=== PATIENT | male | born 1955 | race Caucasian/White ===

== ENCOUNTER → 2018-01-03 14:56 | Outpatient (CLI) | payer OTHER, SELFPAY ==
--- NOTE | 2018-01-04 16:10 | DIET.PN ---
Addendum entered by Lydia Estrada 01/05/18 13:58: To clarify: DOS was 03 January 2018; charting not completed until 04 January 2018. Original Note: Met for initial consultation for education on diet for kidney stones Pt very knowledgeable; has done a lot of research; dealt w/recurring kidney stones for several years. Has several other issues as well, but wanted to tackle one at a time. These include DM, which he says isn't confirmed whether it's type I or II, as MDs trying to figure out the pancreas issue DX: recurr kidney stones HX: DM, pancreatitis (ideopathic) ASSESSMENT: Knowledgeable pt. Does many thing to help avoid kidney stones, including cutting down on Na intake, decreased protein/meats (purine/uric acid production) and tries to drink enough fluids, though may not always get enough. Has lab test pending in which he has to collect urine for 24 hours - suggested he measure fluid intake and volume of urine produced. Is taking an herbal supplement to help decrease kidney stone formation - includes dandelion root. INTERVENTION: Provided education on diet to avoid kidney stones: decreased protein, specifically meat sources vs dairy and vegetable protein to help decrease uric acid production; increase fluid w/goal of producing 2 liters urine daily, low sodium, moderate calcium intake w/goal of consuming approx 800 IU daily. Suggested to add Vit D supplement to help calcium be absorbed; spread high calcium foods through the day for better utilization and take protonix at times not eating high Ca+ foods due to interference w/absorption. GOAL: F/U 2 weeks. Pt hopes to have more lab work available to review. Will focus on other areas: pancreatitis and diabetes Bring label for herbal supplement for review
== END ==
PROVIDERS: PCP Family Medicine; Visit Provider Urology
DX: N20.0 Calculus of kidney (principal)
CPT/HCPCS: 97802

== ENCOUNTER → 2018-01-19 13:56 | Outpatient (CLI) | payer OTHER, SELFPAY ==
--- NOTE | 2018-01-19 15:34 | DIET.PN ---
Met for 2nd f/u Did not receive pt's lab work as intended, though he requested to have this done. Our plan was to check labs for any changes in recommendations that should be made for avoidance of kidney stones. Joon does report his A1C is down and he is pleased with this. Continues to eat <50g CHO/meal. Has to change protonix as PCP informed him this med may increased risk of alzheimer's. Started a different med but can't recall name. Continues to have some pain in lower back that feels like kidney stone forming. Started vit D supplement as rec, continues to push water intake. DX: recurrent kidney stones HX: idiopathic pancreatitis, DM ASSESSMENT: Appears to be controlling DM well AEB in A1C. Unfortunately, we did not have lab work to evaluate INTERVENTION: Provided info on herbal supplement he was taking- showing poor evidence of effectiveness in treating kidney stones - DCd this. GOAL/PLAN; Pt will work on getting lab work to me. I will send feedback and if there is anything notable, we may schedule another appt. Will get name of new med to me for review.
== END ==
PROVIDERS: PCP Family Medicine; Visit Provider Urology
DX: E11.9 Type 2 diabetes mellitus without complications (principal); K85.90 Acute pancreatitis without necrosis or infection, unspecified
CPT/HCPCS: 97803

== ENCOUNTER 2018-01-25 20:12 | Emergency (ER) | payer OTHER, SELFPAY ==
[2018-01-25 20:15] VITALS: BP 141/81; PULSE 87; RESP 14; TEMP 36.7; O2SAT 99; BMI 24.4
[2018-01-25 20:49] LABS: Bacteria Urine None Seen
[2018-01-25 20:53] LABS: Add Manual Diff / Slide Review NO; Basophils Percent Auto 0.2 % (0-2); Eosinophils Percent Auto 3.6 % (2-4); Hematocrit 38.3 % (41-53); Hemoglobin 12.9 g/dL (13.5-17.5); Lymphocytes Percent Auto 22.4 % (25-40); Mean Corpuscular HGB Conc 33.7 % (30-36); Mean Corpuscular Hemoglobin 31.5 PG (26-34); Mean Corpuscular Volume 93.4 fL (80-100); Monocytes Percent Auto 6.6 % (3-14); Neutrophils Absolute Auto 6500 /uL (3000-5900); Neutrophils Percent Auto 67.2 % (50-75); Platelet Count 302 X10^3/uL (150-400); Red Cell Distribution Width 13.2 % (11.6-14.8); White Blood Cell Count 9.7 X10^3/uL (4.5-11.0)
[2018-01-25 20:55] LABS: Culture Indicated Urine Cult Not Indicated; RBC Urine 1-5/HPF (0-5/HPF); Squamous Epithelial Cell Urine 1-5 /HPF; WBC Urine 1-5/HPF (0-5/HPF)
[2018-01-25 21:01] LABS: Lactate (Lactic Acid) 1.5 mmol/L (0.7-2.1)
[2018-01-25 21:02] LABS: Alanine Aminotransferase 30 IU/L (21-72); Albumin 4.2 g/dL (3.5-5.0); Albumin Globulin Ratio 1.6 (1.0-2.8); Alkaline Phosphatase 68 U/L (38-126); Aspartate Aminotransferase 25 IU/L (17-59); BUN Creatinine Ratio 21.7 (6-22); Bilirubin Total 0.5 mg/dL (0.2-1.3); Blood Urea Nitrogen 26 mg/dL (9-20); Calcium 9.3 mg/dL (8.4-10.2); Carbon Dioxide 23 mmol/L (22-32); Chloride 105 mmol/L (98-107); Estimated Glomerular Filt Rate > 60.0 mL/min (>60); Globulin 2.6 g/dL (1.7-4.1); Glucose 151 mg/dL (80-110); HEMOLYSIS < 15 (0-50); Lipase 1110 U/L (23-300); Potassium 3.7 mmol/L (3.4-5.1); Sodium 139 mmol/L (137-145); Total Protein 6.8 g/dL (6.3-8.2)
[2018-01-25] MEDS: HYDROMORPHONE 0.5 MG INJ IV (21:12)
--- NOTE | 2018-01-25 21:26 | DI.CT.S_ITS ---
PROCEDURE: CT KIDNEY URETER BLADDER (KUB) INDICATIONS: right flank pain radiating to groin - stone? TECHNIQUE: Noncontrast 5 mm thick sections acquired from the diaphragms to the symphysis. 5 mm thick coronal and sagittal reformats were then performed. For radiation dose reduction, the following was used: automated exposure control, adjustment of mA and/or kV according to patient size. COMPARISON: [facility], CT, ABDOMEN/PELVIS WITH CONTRAST, 07/21/2011, 5:18. [facility], CT, ABDOMEN W&WO CONTRAST, 07/27/2012, 11:22. FINDINGS: Image quality: Excellent. Lung bases: Lung bases are clear. Heart size is normal. Urinary system: Moderate hydronephrosis and perinephric stranding related to a 6 mm calculus seen in the proximal right ureter on image 54 series 2. Additional sub-4 mm right renal calculi are seen, for example image 44 series 2. There also few 1 mm left renal calculi without evidence of urinary obstruction. The bladder is grossly unremarkable. No bladder calculi are seen Other solid organs: Liver is normal in size. Gallbladder negative surgically absent. Pancreas is normal in contours. Pancreatic duct is prominent although not well-visualized in the absence of IV contrast. Spleen is normal in size. No adrenal nodules. Peritoneum and bowel: Unenhanced bowel loops demonstrate normal wall thickness and caliber. No free fluid or air. Normal appendix. The rectum is decompressed otherwise unremarkable. Nodes and vessels: No retroperitoneal or mesenteric adenopathy by size criteria. Aorta and inferior vena cava are normal in caliber. Abdominal wall: No ventral hernias. Pelvis: No free pelvic fluid. No inguinal hernias or adenopathy. Bones: Possible 9 mm bone island seen in the right femoral head which is unchanged. No vertebral body compression fractures. Nonspecific 5 mm focus of sclerosis in the L3 vertebral body. IMPRESSION: Moderately obstructive proximal right ureteral calculus measuring 6 mm. Additional bilateral punctate nephrolithiasis. Dictated by: Juan David Galaviz M.D. on 01/25/2018 at 21:32 Approved by: Juan David Galaviz M.D. on 01/25/2018 at 21:39
--- NOTE | 2018-01-25 23:19 | ED.MALEGU ---
HPI - Male Genitourinary General Chief complaint: Urogenital-Male Stated complaint: STATES KIDNEY ISSUES Time Seen by Provider: 01/25/18 20:29 History of Present Illness HPI Narrative: HPI 62-year-old male with DM II, prior ureterolithiasis (requiring lithotripsy and stenting), cholecystectomy, and pancreatitis (reportedly idiopathic) presents for evaluation of right flank pain ring to the groin and poorly characterized epigastric discomfort that is been waxing and waning and progressing for several days. Patient denies dysuria, testicular pain, continues to take PO well, pass urine, flatus, stool baseline. No fevers or chills. No chest pain. M/S/F/SocHx notable for: please see HPI; remainder reviewed with patient and in chart. ROS: Negative constitutional, eye, cardiovascular, pulmonary, GI, , MSK, skin, neurologic, psychiatric, endocrine unless noted in the HPI. Exam Gen: Pleasant, non-toxic appearing, resting in mild discomfort. HEENT: NC, AT, PEERL, EOMI. Resp: Clear to auscultation bilaterally, normal work of breathing, no accessory muscle usage. Card: Regular rate and rhythm with no murmurs, rubs, or gallops, extremities warm and well perfused. GI: mild epigastric tenderness palpation, otherwise non-tender to palpation throughout all quadrants, no focal tenderness at McBurney's point, negative Holliday's sign, non-distended, no rebound or guarding. : No suprapubic tenderness to palpation. No CVA tenderness percussion bilaterally. MSK: No visible deformities, strength and tone without visually appreciable deficit. Skin: Normal color with no visible lesions. Neuro: AO x 3, no facial asymmetry, vision and hearing WNL. Psych: Mood and affect appropriate. Labs / Imaging: WBC 9.7, HB 12.9, sodium 139, potassium 3.7, lactic 1.5, total bilirubin 0.5, AST 25, ALT 30, ALP 68, lipase 1110. CT abdomen/pelvis: moderately obstructive proximal right ureteral calculus measuring 6 mm. Additional bilateral punctate nephrolithiasis. UA - no bacteria, negative nitrate, negative leukocyte esterase, 1-5 WBCs. MDM Previous chart, nursing note, labs, imaging, and vitals reviewed. A: 62-year-old male with DM II, prior ureterolithiasis (requiring lithotripsy and stenting), cholecystectomy, and pancreatitis (reportedly idiopathic) presents for evaluation of right flank pain ring to the groin and poorly characterized epigastric discomfort that is been waxing and waning and progressing for several days. DDx: pancreatitis, ureterolithiasis, UTI, pyelonephritis, constipation, diverticulitis, pseudoappendicitis, mesenteric adenitis, epiploic appendagitis. Evaluation: patient with a 6 mm right side ureteral calculus an elevated lipase consistent with pancreatitis. However, the patient's CT (albeit noncontrast) is without evidence of pancreatic inflammation in the patient's have persistently elevated lipase values, given the mildness of epigastric tenderness in the ongoing PO intake suspect mild pancreatitis. UA without evidence of infection. As patient continues to take PO well, has pain is well controlled with minimum analgesia, and there were no significant abnormalities on CT or CBC and is hemodynamically stable he is appropriate for outpatient management of his pancreatitis. With respect to his right ureteral stone, patient wishes to pursue conservative management and will follow up with his urologist in the morning. Patient was prescribed [place] and Zofran. Impression: ureterolithiasis, pancreatitis (please reference below for remainder of encounter information) Related Data Home Medications Medication Instructions Recorded Confirmed pantoprazole [Protonix] 40 mg PO BID #0 07/21/11 epinephrine 0.3 mg IM SEE INSTRUCTIONS #1 ea 01/03/13 metformin [Glucophage] 1,000 mg PO BID #0 04/02/17 ibuprofen 200 mg PO PRN PRN #0 11/05/17 Previous Rx's Medication Instructions Recorded oxycodone 10 mg PO Q4HP PRN #14 tab 11/05/17 tamsulosin [Flomax] 0.4 mg PO HS #7 cap 11/05/17 Allergies Allergy/AdvReac Type Severity Reaction Status Date / Time BEE STING Allergy Unknown Uncoded 01/25/18 20:15 Exam Initial Vital Signs Initial Vital Signs: Vital Signs Temperature 98.1 F 01/25/18 20:15 Pulse Rate 87 01/25/18 20:15 Respiratory Rate 14 01/25/18 20:15 Blood Pressure 141/81 H 01/25/18 20:15 Pulse Oximetry 99 01/25/18 20:15 Course Orders Ordered: ED Orders 01/25/18 20:30 Urine Microscopic Stat 01/25/18 20:40 Complete Blood Count AUTO DIFF Stat Comprehensive Metabolic Panel Stat Lactate (Lactic Acid) Stat Lipase Stat 01/25/18 21:26 CT kidney ureter bladder (KUB) Stat Hydromorphone HCl (Dilaudid) 0.5 mg IV PRN PRN PRN Reason: Pain, Mild (1-3) Last Admin: 01/25/18 21:12 Dose: 0.5 mg Vital Signs - 8 hr 01/25/18 20:15 Temperature 98.1 F Pulse Rate 87 Respiratory Rate 14 Blood Pressure 141/81 H Pulse Oximetry 99 MDM - Male Genitourinary Lab Data Result diagrams: 01/25/18 20:40 01/25/18 20:40 Lab Results 01/25/18 01/25/18 01/25/18 Range/Units 20:30 20:40 20:40 WBC 9.7 (4.5-11.0) X10^3/uL RBC 4.10 L (4.5-5.9) X10^6/uL Hgb 12.9 L (13.5-17.5) g/dL Hct 38.3 L (41-53) % MCV 93.4 (80-100) fL MCH 31.5 (26-34) PG MCHC 33.7 (30-36) % RDW 13.2 (11.6-14.8) % Plt Count 302 (150-400) X10^3/uL Neut % (Auto) 67.2 (50-75) % Lymph % (Auto) 22.4 L (25-40) % [place] % (Auto) 6.6 (3-14) % Eos % (Auto) 3.6 (2-4) % Baso % (Auto) 0.2 (0-2) % Neut # (Auto) 6500 H (1601-5592) /uL Sodium 139 (137-145) mmol/L Potassium 3.7 (3.4-5.1) mmol/L Chloride 105 (98-107) mmol/L Carbon Dioxide 23 (22-32) mmol/L BUN 26 H (9-20) mg/dL Creatinine 1.20 (0.66-1.25) mg/dL Estimated GFR > 60.0 (>60) mL/min BUN/Creatinine Ratio 21.7 (6-22) Glucose 151 H (80-110) mg/dL Lactate (0.7-2.1) mmol/L Calcium 9.3 (8.4-10.2) mg/dL Total Bilirubin 0.5 (0.2-1.3) mg/dL AST 25 (17-59) IU/L ALT 30 (21-72) IU/L Alkaline Phosphatase 68 (38-126) U/L Total Protein 6.8 (6.3-8.2) g/dL Albumin 4.2 (3.5-5.0) g/dL Globulin 2.6 (1.7-4.1) g/dL Albumin/Globulin Ratio 1.6 (1.0-2.8) Lipase 1110 H (23-300) U/L Urine RBC 1-5/hpf (0-5/HPF) Urine WBC 1-5/hpf (0-5/HPF) Ur Squamous Epith Cells 1-5 /hpf Urine Bacteria None seen (None) Ur Culture Indicated? Cult not indicated Micro UA Comment Not Reportable 01/25/18 Range/Units 20:40 WBC (4.5-11.0) X10^3/uL RBC (4.5-5.9) X10^6/uL Hgb (13.5-17.5) g/dL Hct (41-53) % MCV (80-100) fL MCH (26-34) PG MCHC (30-36) % RDW (11.6-14.8) % Plt Count (150-400) X10^3/uL Neut % (Auto) (50-75) % Lymph % (Auto) (25-40) % [place] % (Auto) (3-14) % Eos % (Auto) (2-4) % Baso % (Auto) (0-2) % Neut # (Auto) (0506-0090) /uL Sodium (137-145) mmol/L Potassium (3.4-5.1) mmol/L Chloride (98-107) mmol/L Carbon Dioxide (22-32) mmol/L BUN (9-20) mg/dL Creatinine (0.66-1.25) mg/dL Estimated GFR (>60) mL/min BUN/Creatinine Ratio (6-22) Glucose (80-110) mg/dL Lactate 1.5 (0.7-2.1) mmol/L Calcium (8.4-10.2) mg/dL Total Bilirubin (0.2-1.3) mg/dL AST (17-59) IU/L ALT (21-72) IU/L Alkaline Phosphatase (38-126) U/L Total Protein (6.3-8.2) g/dL Albumin (3.5-5.0) g/dL Globulin (1.7-4.1) g/dL Albumin/Globulin Ratio (1.0-2.8) Lipase (23-300) U/L Urine RBC (0-5/HPF) Urine WBC (0-5/HPF) Ur Squamous Epith Cells Urine Bacteria (None) Ur Culture Indicated? Micro UA Comment Discharge Plan Departure Prescriptions: No Action pantoprazole [Protonix] 40 MG tablet,delayed release (DR/EC) 40 mg PO BID Qty: 0 RF: 0 epinephrine 0.3 MG/0.3 ML auto-injector 0.3 mg IM SEE INSTRUCTIONS Qty: 1 RF: 0 metformin [Glucophage] 1,000 MG tablet 1,000 mg PO BID Qty: 0 RF: 0 ibuprofen 200 MG tablet 200 mg PO PRN PRNQty: 0 RF: 0 oxycodone 10 MG tablet 10 mg PO Q4HP PRNQty: 14 RF: 0 tamsulosin [Flomax] 0.4 MG capsule,extended release 24hr 0.4 mg PO HS Qty: 7 RF: 0
[2018-01-25 23:45] VITALS: BP 126/77; PULSE 75; RESP 18; TEMP 37.2; O2SAT 99
[2018-01-25] MEDS: ONDANSETRON 4 MG ODT PREPACK 1 BOTTLE MISC (23:45)
[2018-01-25] MEDS: HYDROCODONE/ACET 5/325 PREPACK 1 BOTTLE MISC (23:45)
== END 2018-01-25 23:46 | disposition home or self-care (01) ==
PROVIDERS: Emergency Provider Emergency Medicine; Family Provider Family Medicine; PCP Family Medicine
DX: N20.1 Calculus of ureter (principal); K85.90 Acute pancreatitis without necrosis or infection, unspecified
CPT/HCPCS: 36591; 74176; 80053; 81003; 81015; 83605; 83690; 85025; 99282; 99284; J1170

== ENCOUNTER → 2018-04-22 14:14 | Outpatient (CLI) | payer OTHER, SELFPAY ==
--- NOTE | 2018-04-22 | DI.US.S_ITS ---
PROCEDURE: US RETROPERITONEAL COMP INDICATIONS: RIGHT FLANK PAIN; HISTORY BILATERAL KIDNEY STONES TECHNIQUE: Real-time scanning was performed of the kidneys and bladder, with image documentation. COMPARISON: [facility], CT, CT KIDNEY URETER BLADDER (KUB), 01/25/2018, 21:12. FINDINGS: Kidneys: Kidneys are normal in size. Right kidney measures 13 cm long; left kidney measures 12.2 cm long. Right renal cortical thickness is 1.6 cm; left renal cortical thickness is 2 cm. Renal cortical echotexture is normal. No hydronephrosis or nephrolithiasis. No suspicious solid mass lesions. Bladder: Pre-void bladder volume is 66 mL. Post-void residual is 34 mL. Pre-void images demonstrate no intraluminal masses or stones. On pre-void images, neither of the ureteral jets are noted with color Doppler interrogation. (Of note, ureteral jets may not be detectable in up to 25% of cases due to insufficient differences in specific gravity between ureteral and bladder urine). Miscellaneous: No free pelvic fluid. IMPRESSION: No hydronephrosis is seen. No shadowing stones can be seen on this ultrasound. Mild postvoid residual (34 cc). Dictated by: Saqib Taylor M.D. on 04/22/2018 at 14:36 Approved by: Saqib Taylor M.D. on 04/22/2018 at 14:37
== END ==
PROVIDERS: PCP Family Medicine; Visit Provider Urology
DX: R10.9 Unspecified abdominal pain (principal); Z87.442 Personal history of urinary calculi
CPT/HCPCS: 76770

== ENCOUNTER → 2020-04-15 10:32 | Outpatient (CLI) | payer OTHER, MEDICARE, SELFPAY ==
--- NOTE | 2020-04-15 | DI.US.S_ITS ---
PROCEDURE: US RENAL COMPLETE INDICATIONS: CALCULUS OF KIDNEY TECHNIQUE: Real-time scanning was performed of the kidneys and bladder, with image documentation. COMPARISON: [facility], CT, CT ABDOMEN PELVIS WITH CONTRAST, 09/25/2018, 2:18. Outside Film, CT, CT ABDOMEN PELVIS WITHOUT CONTRAST, 02/21/2020, 7:03. FINDINGS: Kidneys: Kidneys are normal in size. Right kidney measures 11.8 cm long; left kidney measures 11.5 cm long. Right renal cortical thickness is 1.3 cm; left renal cortical thickness is 1.6 cm. Renal cortical echotexture is normal. No hydronephrosis. No suspicious solid mass lesions. Tiny bilateral nonobstructing renal stones are seen. At the inferior pole of the left kidney, there is a 1 cm cyst incidentally noted. At the inferior pole of the right kidney, there is a cluster of cysts that measures up to 1.7 cm, when measured together within the midportion of the kidney, including a complex cyst. Bladder: Pre-void bladder volume is 392 mL. Post-void residual is 13 mL. Pre-void images demonstrate no intraluminal masses or stones. The gallbladder wall appears thickened, measuring up to 5.3 mm. On pre-void images, neither of the ureteral jets are noted with color Doppler interrogation. (Of note, ureteral jets may not be detectable in up to 25% of cases due to insufficient differences in specific gravity between ureteral and bladder urine). Miscellaneous: No free pelvic fluid. IMPRESSION: Tiny nonobstructing bilateral renal stones are seen. No hydronephrosis is seen. Within the mid right kidney, there is a complex cyst seen. When clinically appropriate, please consider a dedicated renal mass protocol CT for further evaluation. Mild bladder wall thickening is seen. Mild postvoid residual, 13 cc. Dictated by: Saqib Taylor M.D. on 04/15/2020 at 13:49 Approved by: Saqib Taylor M.D. on 04/15/2020 at 13:52
== END ==
PROVIDERS: PCP Family Medicine; Referring Provider Urology; Visit Provider Urology
DX: N20.0 Calculus of kidney (principal); N28.1 Cyst of kidney, acquired
CPT/HCPCS: 76770

== ENCOUNTER → 2021-09-30 07:31 | Outpatient (CLI) | payer OTHER, MEDICARE, SELFPAY ==
--- NOTE | 2021-09-30 | DI.MRI.S_ITS ---
PROCEDURE: MR ABDOMEN WO/W CON INDICATIONS: Idiopathic acute pancreatitis without necrosis or TECHNIQUE: Coronal HASTE, axial 2D FLASH in- and [id number]; axial breath-hold T2 FSE with fat saturation from the hepatic dome to the iliac crests. Oblique coronal thin-slice and radial thick slab HASTE through the biliary system. Dynamic axial VIBE during administration of contrast. Post-contrast coronal VIBE or 2D FLASH with fat saturation from the hepatic dome to the iliac crests. Optional diffusion weighted imaging and ADC may be performed. COMPARISON: [facility], CT, CT ABDOMEN PELVIS WITH CONTRAST, 09/25/2018, 2:18. FINDINGS: Image quality: Excellent. Pancreas and biliary system: There is a trophic appearing pancreas without discrete pancreatic mass or area of abnormal enhancement. No peripancreatic inflammatory changes are seen. Chronic appearing pancreatic ductal dilatation is noted with pancreatic duct measures up to 7.5 mm in diameter in pancreatic body and 9 mm in diameter in uncinate process. Focal dilatation of pancreatic duct at the level of pancreatic head is seen and measures up to 2.1 cm in diameter. There is no intrahepatic biliary ductal dilatation. Common bile duct is normal in size and measures 6 mm in diameter. No intraluminal filling defect is identified in common bile duct. No definite filling defect is noted within pancreatic duct. No area of abnormal enhancement is seen Solid organs: Liver is normal in size and enhancement. Gallbladder is surgically absent. Spleen is normal in size and enhancement. No adrenal nodules. Kidneys are normal in size and enhancement, without hydronephrosis. Nodes and vessels: No retroperitoneal or mesenteric adenopathy by size criteria. Aorta and inferior vena cava are normal in size. Bowel and peritoneum: Unenhanced bowel loops are normal in caliber throughout. No free fluid. Lung bases: No basal pleural effusions. Heart size is normal. Bones and soft tissues: No ventral hernias. Bone marrow is normal in overall signal. IMPRESSION: 1. Atrophic appearing pancreas with diffusely dilated pancreatic duct as described above. Focal area of main pancreatic ductal dilatation and pancreatic head region measures up to 2.2 cm in diameter which may represent main duct IPMN in this area. No enhancing pancreatic mass is noted. No peripancreatic fat stranding or fluid. No gross soft tissue mass or filling defect is seen in pancreatic duct. Consider follow-up MRI in 6 months for evaluation of stability. 2. Prior cholecystectomy. No intrahepatic biliary ductal dilatation. No common bile duct dilatation. No choledocholithiasis. 3. Rest of the exam is unremarkable. No peritoneal free fluid. Dictated by: Ajay Brock M.D. on 09/30/2021 at 9:28 Approved by: Ajay Brock M.D. on 09/30/2021 at 9:55
== END ==
PROVIDERS: PCP Family Medicine; Referring Provider Internal Medicine Gastroenterology; Visit Provider Internal Medicine Gastroenterology
DX: K85.00 Idiopathic acute pancreatitis without necrosis or infection (principal); K86.89 Other specified diseases of pancreas; Z90.49 Acquired absence of other specified parts of digestive tract
CPT/HCPCS: 74183

== ENCOUNTER → 2021-10-03 10:23 | Outpatient (CLI) | payer OTHER, MEDICARE, SELFPAY ==
[2021-10-03 13:50] LABS: COVID19 -Nasal RAPID Negative (Negative)
== END ==
PROVIDERS: PCP Family Medicine; Visit Provider Nurse Practitioner Family
DX: Z20.822 Contact with and (suspected) exposure to COVID-19 (principal)
CPT/HCPCS: 87635

== ENCOUNTER 2021-10-03 22:16 | Emergency (ER) | payer OTHER, MEDICARE, SELFPAY ==
[2021-10-03 22:25] VITALS: BP 155/82; PULSE 77; RESP 16; TEMP 36.9; O2SAT 99; BMI 25.0
--- NOTE | 2021-10-03 22:34 | ED.ABDPAIN ---
HPI - Abdominal Pain General Chief Complaint: Abdominal Pain Stated Complaint: PANCREATITIS ATTACK Time Seen by Provider: 10/03/21 22:26 Source: patient and family Mode of arrival: Ambulatory History of Present Illness HPI narrative: 66-year-old male nonsmoker with history of pancreatitis and kidney stones presents with his in the chief complaint of increased epigastric pain with nausea over the course of the day. He states this feels quite similar to prior episodes of pancreatitis. He states he has increased pain with motion and improvement with rest. He has nausea but denies vomiting. He has had no fever or chills. He denies any alcohol. He denies any change in bowel habits, new medications. He states the pain is sharp, stabbing crampy and sits in his upper belly and occasionally radiates to his back. He is unsure what was going on when it started but it feels quite similar to prior episodes of his pancreatitis. He denies any change in medications or diet Related Data Home Medications Medication Instructions Recorded Confirmed pantoprazole 40 mg tablet,delayed 40 mg PO BID #0 07/21/11 10/03/21 release (Protonix) epinephrine 0.3 mg/0.3 mL 0.3 mg IM SEE INSTRUCTIONS #1 ea 01/03/13 injection, auto-injector metformin 1,000 mg tablet 1,000 mg PO BID #0 04/02/17 (Glucophage) ibuprofen 200 mg tablet 200 mg PO PRN PRN #0 11/05/17 atorvastatin 20 mg tablet mg 10/03/21 insulin glargine 100 unit/mL unit SUBCUT 10/03/21 subcutaneous solution (Lantus U-100 Insulin) oxycodone 10 mg tablet 10 mg PO Q4HP PRN 10/03/21 Previous Rx's Medication Instructions Recorded tamsulosin 0.4 mg capsule (Flomax) 0.4 mg PO HS #7 cap 11/05/17 hydrocodone 5 mg-acetaminophen 325 See Rx Instructions .ROUTE 01/25/18 mg tablet .COMPLEX PRN #20 tab hydrocodone 5 mg-acetaminophen 325 1 tab PO Q4-6H PRN #10 tab 10/04/21 mg tablet ondansetron 4 mg disintegrating 4 mg PO TID-QID PRN #10 tab 10/04/21 tablet Allergies Allergy/AdvReac Type Severity Reaction Status Date / Time BEE STING Allergy Unknown Uncoded 03/11/22 22:28 Review of Systems Review of Systems Narrative: GENERAL: Denies chills, fatigue, malaise, fever, sweats. HEENT: Denies sinus pain, ear pain, sore throat, difficulty swallowing, dizziness. RESPIRATORY: Denies dyspnea, cough, wheezing, hemoptysis, sputum. CARDIOVASCULAR: Denies chest pain, palpitations, orthopnea, edema, GASTROINTESTINAL: See HPI : Denies dysuria, frequency, incontinence, hematuria, urinary retention. MUSCULOSKELETAL: denies weakness, joint pain, or bony pain SKIN: Denies rash, skin lesions, or other NEUROLOGIC: Denies weakness, headache, numbness, change in speech, confusion, seizures, incoordination. PSYCHIATRIC: No concerning psychosocial issues. 12 point review of systems is negative except for those stated above Patient History Social History Smoking Status: Never smoker Smoking Status: Never smoker alcohol intake frequency: other Substance Use Type: does not use Exam Narrative Exam Narrative: GENERAL: [66] year old patient appears stated age. Well-developed patient, in mild distress. HEAD: Atraumatic. Normocephalic. EYES: Pupils equal round and reactive. Extraocular motions intact. No scleral icterus. No injection or drainage. ENT: Nose without bleeding, purulent drainage. Throat without erythema, tonsillar hypertrophy or exudate. Airway patent. NECK: Trachea midline. Non tender CARDIOVASCULAR: Regular rate and rhythm without murmurs, gallops, or rubs. RESPIRATORY: Clear to auscultation. Breath sounds equal bilaterally. No wheezes, rales, or rhonchi. GASTROINTESTINAL: Abdomen soft, tender in the epigastric, nondistended. EXTREMITIES: No edema or joint tenderness. BACK: Nontender without deformity or crepitance. No flank tenderness. NEURO: AOx3. SKIN: No rash or erythema of visible areas Initial Vital Signs Initial Vital Signs: Vital Signs Temperature 98.5 F 10/03/21 22:25 Pulse Rate 77 10/03/21 22:25 Respiratory Rate 16 10/03/21 22:25 Blood Pressure 155/82 H 10/03/21 22:25 Pulse Oximetry 99 10/03/21 22:25 Course Orders Ordered: ED Orders 10/03/21 22:38 Complete Blood Count AUTO DIFF Stat Comprehensive Metabolic Panel Stat Lipase Stat 10/04/21 00:00 XR acute abdomen series Stat Discontinued Medications Hydrocodone Bitart/Acetaminophen (Hydrocodone/Acet 5/325 Prepack) 1 bottle MISC SEEINSTR ONE Stop: 10/04/21 01:58 Last Admin: 10/04/21 02:13 Dose: 1 bottle Documented by: BJ Hydromorphone HCl (Hydromorphone 1 Mg Inj) 1 mg IV NOW ONE Stop: 10/03/21 22:39 Last Admin: 10/03/21 22:45 Dose: 1 mg Documented by: BJ Hydromorphone HCl (Hydromorphone 0.5 Mg Inj) 0.5 mg IV NOW ONE Stop: 10/04/21 00:01 Last Admin: 10/04/21 00:19 Dose: 0.5 mg Documented by: BJ Sodium Chloride (Normal Saline 0.9%) 1,000 mls @ 1,000 mls/hr IV BOLUS ONE Stop: 10/03/21 23:37 Last Infusion: 10/03/21 23:37 Dose: 0 mls/hr Documented by: Admin: 10/03/21 22:45 Dose: 1,000 mls/hr Documented by: BJ Sodium Chloride (Normal Saline 0.9%) 1,000 mls @ 1,000 mls/hr IV BOLUS ONE Stop: 10/04/21 00:59 Last Infusion: 10/04/21 02:21 Dose: 0 mls/hr Documented by: Admin: 10/04/21 00:19 Dose: 1,000 mls/hr Documented by: BJ Ondansetron HCl (Ondansetron 4 Mg/2 Ml Inj) 4 mg IV NOW ONE Stop: 10/03/21 22:39 Last Admin: 10/03/21 22:44 Dose: 4 mg Documented by: BJ Ondansetron HCl (Ondansetron 4 Mg Odt Prepack) 1 bottle MISC SEEINSTR ONE Stop: 10/04/21 01:58 Last Admin: 10/04/21 02:13 Dose: 1 bottle Documented by: BJ Vital Signs Vital signs: Vital Signs - 8 hr 10/03/21 23:14 10/03/21 23:16 10/03/21 23:30 Pulse Rate 72 80 70 Blood Pressure 134/76 138/76 Pulse Oximetry 98 97 97 10/04/21 00:00 10/04/21 02:18 10/04/21 02:19 Pulse Rate 70 75 75 Blood Pressure 166/79 H 131/61 Pulse Oximetry 98 99 98 MDM - Abdominal Pain Lab Data Result diagrams: 10/03/21 22:38 10/03/21 22:38 Labs: Lab Results 10/03/21 10/03/21 Range/Units 22:38 22:38 WBC 12.8 H (4.5-11.0) X10^3/uL RBC 4.46 L (4.5-5.9) X10^6/uL Hgb 13.8 (13.5-17.5) g/dL Hct 41.3 (41-53) % MCV 92.5 (80-100) fL MCH 30.9 (26-34) PG MCHC 33.4 (30-36) % RDW 12.9 (11.6-14.8) % Plt Count 266 (150-400) X10^3/uL Neut % (Auto) 77.3 H (50-75) % Lymph % (Auto) 14.6 L (25-40) % Mitchell % (Auto) 6.7 (3-14) % Eos % (Auto) 1.2 L (2-4) % Baso % (Auto) 0.2 (0-2) % Neut # (Auto) 9900 H (5723-6550) /uL Lymph # (Auto) 1900 (0954-2962) /uL Mitchell # (Auto) 900 (0-900) /uL Eos # (Auto) 200 (0-450) /uL Baso # (Auto) 0 (0-100) /uL Sodium 135 L (137-145) mmol/L Potassium 3.8 (3.4-5.1) mmol/L Chloride 106 (98-107) mmol/L Carbon Dioxide 24 (22-32) mmol/L BUN 15 (9-20) mg/dL Creatinine 0.82 (0.66-1.25) mg/dL Estimated GFR > 60.0 (>60) mL/min BUN/Creatinine Ratio 18.3 (6-22) Glucose 210 H (80-110) mg/dL Calcium 8.9 (8.4-10.2) mg/dL Total Bilirubin 0.9 (0.2-1.3) mg/dL AST 31 (17-59) IU/L ALT 32 (<50) IU/L Alkaline Phosphatase 96 (38-126) U/L Total Protein 7.5 (6.3-8.2) g/dL Albumin 4.7 (3.5-5.0) g/dL Globulin 2.8 (1.7-4.1) g/dL Albumin/Globulin Ratio 1.7 (1.0-2.8) Lipase 638 H (23-300) U/L Imaging Data Chest x-ray: Radiologist's Impression: Jose Antonio Bolanos??66??M??1955 ? Allergy/Adv: [BEE STING] Close Chest/Abdomen X-ray (Signed) Yuri Hebert - 10/04/21 Abdomen MRI (Signed) Ajay Brock - 09/30/21 Renal Ultrasound (Signed) Saqib Taylor - 04/15/20 Retroperitoneum Ultrasound (Signed) Saqib Taylor - 04/22/18 Abdomen/Pelvis CT (Signed) Juan David Galaviz - 01/25/18 Radiology - Historical 11/05/17 Radiology - Historical 11/05/17 Radiology - Historical 02/13/17 Radiology - Historical 02/28/16 Radiology - Historical 02/28/16 [place] [address] XRay Report Signed Patient: Jose Antonio Bolanos MR#: [id number] : 1955 Acct:[id number] Age/Sex: 66 / M Date of Service: 10/04/21 Loc: ED Accession Number: [id number] ?? Procedure: XR acute abdomen series Ordering Provider: Patrice Orona D.O. PROCEDURE:? XR ACUTE ABDOMEN SERIES ? INDICATIONS:? abdominal pain, nausea ? TECHNIQUE:? One view chest and two views of the abdomen were acquired.? ? COMPARISON:? None. ? FINDINGS:? ? Surgical changes and devices:? Surgical clips are seen in the right upper quadrant. ? Chest:? Lungs are clear.? Heart size is normal.? No pleural effusions.? No pneumoperitoneum.? ? Abdomen:? Air-filled loops of small bowel in the central abdomen are not significantly dilated.? Moderate stool is seen in the left colon.? No suspicious calcifications.? Visualized solid organ contours appear normal.? ? Bones:? No suspicious bony lesions.? ? IMPRESSION:? Nonspecific nonobstructive bowel gas pattern.? No pneumoperitoneum.? No acute cardiopulmonary abnormality. ? ? Dictated by: Yuri Hebert M.D. on 10/04/2021 at 0:19 ? ? Approved by: Yuri Hebert M.D. on 10/04/2021 at 0:21 ? MDM Narrative Medical decision making narrative: Patient with reassuring history and physical exam. His story is consistent with prior episodes of pancreatitis and lipase is elevated in the 600s. His exam fits this picture. He shows no signs of sepsis and pain is well controlled above-stated therapies. He is able to tolerate orals and is very appropriate for discharge. He does have an outpatient endoscopy scheduled for Wednesday with [facility] and is scheduled to do the typical prep on Wednesday evening. I encouraged him to reach out to that group earlier in the day to discuss his visit here and whether that may play a role and the plan on Wednesday. He and understand and agree with the diagnosis and plan. They have been given return precautions and a VAC questions answered to their apparent satisfaction Discharge Plan Departure Patient Disposition: Home Clinical Impression: Pancreatitis Instructions: DI for Pancreatitis Activity Restrictions/Additional Instructions: *You have been diagnosed with [acute mild pancreatitis. As we discussed your history and physical exam as well as labs and response to therapies is reassuring. There is no indication that hospitalization or a specific intervention is needed at this time. *What to do: *Please continue to take your regular medications as directed. [x ] New medication prescriptions sent to your pharmacy: [ [facility] in [place]] [ ] New medication written as a paper prescription [ ] No new medications given * please reach out to the GI team that will be performing your studies to discuss your visit today and how you should proceed with your appointment on Wednesday * please maintain a clear liquid diet for the next 24-48 hours *Return to Emergency Department if you should have any new, worsening or concerning symptoms, such as [fever greater than 101 F, shaking chills, worsening pain, persistent vomiting or other bothersome symptoms] Prescriptions: New hydrocodone-acetaminophen 5-325 mg tablet 1 tab PO Q4-6H PRN (Reason: pain) Qty: 10 0RF ondansetron 4 mg tablet,disintegrating 4 mg PO TID-QID PRN (Reason: nausea and vomiting) Qty: 10 0RF No Action pantoprazole [Protonix] 40 MG tablet,delayed release (DR/EC) 40 mg PO BID Qty: 0 0RF epinephrine 0.3 MG/0.3 ML auto-injector 0.3 mg IM SEE INSTRUCTIONS Qty: 1 0RF metformin [Glucophage] 1,000 MG tablet 1,000 mg PO BID Qty: 0 0RF ibuprofen 200 MG tablet 200 mg PO PRN PRNQty: 0 0RF tamsulosin [Flomax] 0.4 MG capsule,extended release 24hr 0.4 mg PO HS Qty: 7 0RF hydrocodone-acetaminophen 5-325 mg tablet See Rx Instructions .ROUTE .COMPLEX PRN (Reason: pain) Qty: 20 0RF Rx Instructions: 1-2 tab q6hr prn pain. atorvastatin 20 mg tablet 0RF Label Comments: take 1 tablet by mouth at bedtime Lantus U-100 Insulin 100 unit/mL solution SUBCUT 0RF Label Comments: inject 34 units subcutaneously every morning for diabetes oxycodone 10 MG tablet 10 mg PO Q4HP PRN (Reason: Pain (Scale Score 1-3)) 0RF Referrals: Anival Muse MD [Primary Care Provider] -
[2021-10-03] MEDS: ONDANSETRON 4 MG/2 ML INJ IV (22:44)
[2021-10-03] MEDS: SODIUM CHLORIDE 0.9% 1,000 ML 1000 ML IV (22:45)
[2021-10-03] MEDS: HYDROMORPHONE 1 MG INJ IV (22:45)
[2021-10-03 22:55] LABS: Add Manual Diff / Slide Review NO; Basophils Absolute Auto 0 /uL (0-100); Basophils Percent Auto 0.2 % (0-2); Eosinophils Absolute Auto 200 /uL (0-450); Eosinophils Percent Auto 1.2 % (2-4); Hematocrit 41.3 % (41-53); Hemoglobin 13.8 g/dL (13.5-17.5); Lymphocytes Absolute Auto 1900 /uL (1100-4500); Lymphocytes Percent Auto 14.6 % (25-40); Mean Corpuscular HGB Conc 33.4 % (30-36); Mean Corpuscular Hemoglobin 30.9 PG (26-34); Mean Corpuscular Volume 92.5 fL (80-100); Monocytes Absolute Auto 900 /uL (0-900); Monocytes Percent Auto 6.7 % (3-14); Neutrophils Absolute Auto 9900 /uL (1500-7000); Neutrophils Percent Auto 77.3 % (50-75); Platelet Count 266 X10^3/uL (150-400); Red Blood Cell Count 4.46 X10^6/uL (4.5-5.9); Red Cell Distribution Width 12.9 % (11.6-14.8); White Blood Cell Count 12.8 X10^3/uL (4.5-11.0)
[2021-10-03 23:11] LABS: Alanine Aminotransferase 32 IU/L (<50); Albumin 4.7 g/dL (3.5-5.0); Albumin Globulin Ratio 1.7 (1.0-2.8); Alkaline Phosphatase 96 U/L (38-126); Aspartate Aminotransferase 31 IU/L (17-59); BUN Creatinine Ratio 18.3 (6-22); Bilirubin Total 0.9 mg/dL (0.2-1.3); Blood Urea Nitrogen 15 mg/dL (9-20); Calcium 8.9 mg/dL (8.4-10.2); Carbon Dioxide 24 mmol/L (22-32); Chloride 106 mmol/L (98-107); Estimated Glomerular Filt Rate > 60.0 mL/min (>60); Globulin 2.8 g/dL (1.7-4.1); Glucose 210 mg/dL (80-110); HEMOLYSIS < 15 (0-50); Lipase 638 U/L (23-300); Potassium 3.8 mmol/L (3.4-5.1); Sodium 135 mmol/L (137-145); Total Protein 7.5 g/dL (6.3-8.2)
[2021-10-03 23:14] VITALS: PULSE 72; O2SAT 98
[2021-10-03 23:16] VITALS: BP 134/76; PULSE 80; O2SAT 97
[2021-10-03 23:30] VITALS: BP 138/76; PULSE 70; O2SAT 97
[2021-10-04] VITALS: BP 166/79; PULSE 70; O2SAT 98
--- NOTE | 2021-10-04 | DI.RAD.S_ITS ---
PROCEDURE: XR ACUTE ABDOMEN SERIES INDICATIONS: abdominal pain, nausea TECHNIQUE: One view chest and two views of the abdomen were acquired. COMPARISON: None. FINDINGS: Surgical changes and devices: Surgical clips are seen in the right upper quadrant. Chest: Lungs are clear. Heart size is normal. No pleural effusions. No pneumoperitoneum. Abdomen: Air-filled loops of small bowel in the central abdomen are not significantly dilated. Moderate stool is seen in the left colon. No suspicious calcifications. Visualized solid organ contours appear normal. Bones: No suspicious bony lesions. IMPRESSION: Nonspecific nonobstructive bowel gas pattern. No pneumoperitoneum. No acute cardiopulmonary abnormality. Dictated by: Yuri Hebert M.D. on 10/04/2021 at 0:19 Approved by: Yuri Hebert M.D. on 10/04/2021 at 0:21
[2021-10-04] MEDS: HYDROMORPHONE 0.5 MG INJ IV (00:19)
[2021-10-04] MEDS: SODIUM CHLORIDE 0.9% 1,000 ML 1000 ML IV (00:19)
[2021-10-04] MEDS: HYDROCODONE/ACET 5/325 PREPACK 1 BOTTLE MISC (02:13)
[2021-10-04] MEDS: ONDANSETRON 4 MG ODT PREPACK 1 BOTTLE MISC (02:13)
[2021-10-04 02:18] VITALS: PULSE 75; O2SAT 99
[2021-10-04 02:19] VITALS: BP 131/61; PULSE 75; O2SAT 98
== END 2021-10-04 02:24 | disposition home or self-care (01) ==
PROVIDERS: Emergency Provider Emergency Medicine; PCP Family Medicine
DX: K85.90 Acute pancreatitis without necrosis or infection, unspecified (principal); Z20.822 Contact with and (suspected) exposure to COVID-19
CPT/HCPCS: 36415; 74022; 80053; 83690; 85025; 87635; 96361; 96374; 96375; 96376; 99284; C9803; J1170; J2405

== ENCOUNTER 2021-10-06 09:13 | Day surgery (SDC) | payer OTHER, MEDICARE, SELFPAY ==
--- NOTE | 2021-10-06 | PATH_ITS ---
[facility] Accession Number: [id number] No. of containers..01 Tissue . 01 Material submitted: . colon - SIGMOID POLYP . 02 Diagnosis: Sigmoid Colon Polyp, Biopsy: Tubular adenoma. MRV 10/09/2021 1226 Local . 02 Electronically signed: . Tristen York MD, PhD, Pathologist NPI- [id number] . 01 Gross description: . SIGMOID POLYP: Received in formalin is 1 fragment(s) of becerra, soft tissue measuring 0.2 x 0.1 x 0.1 cm submitted entirely in 1 cassette(s) /CPE 10/08/2021 0947 Local . 02 Pathologist provided ICD-10: D12.5 . 02 CPT . 250238 Specimen Comment: A courtesy copy of this report has been sent to [phone] Performed at: 01 [facility] Cyt[facility] [address] [facility], [place], [place] [id number] MD Fernando Hughes MD Phone: [phone] Performed at: 02 [facility] [address] [place], [place] [id number] MD Kait Hernandez MD Phone: [phone]
[2021-10-06 10:33] VITALS: BP 126/72; PULSE 75; RESP 16; TEMP 36.7; O2SAT 99
[2021-10-06 10:35] VITALS: BMI 25.0
[2021-10-06] MEDS: SODIUM CHLORIDE 0.9% 1,000 ML 100 ML IV (10:45)
--- NOTE | 2021-10-06 12:06 | PM.HP.1 ---
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 Just had a recent hospitalization for pancreatitis. He is scheduled for EUS at the end of the month. I explained to him that at that time a diagnostic upper endoscopy is typically accomplished at that exact same exam. Patient History Medical History Acute recurrent pancreatitis Surgical History History of cholecystectomy History of mandibular surgery Family & Social History Social History: household members spouse,family Tobacco & Substance use: Smoking Status Former smoker alcohol intake former alcohol intake frequency other Substance Use Type does not use Meds Home Medications and Allergies Home Medications Medication Instructions Recorded Confirmed Type pantoprazole 40 mg tablet,delayed 40 mg PO BID #0 07/21/11 10/06/21 History release (Protonix) epinephrine 0.3 mg/0.3 mL 0.3 mg IM SEE INSTRUCTIONS #1 ea 01/03/13 10/06/21 History injection, auto-injector insulin glargine 100 unit/mL 34 unit SUBCUT QPM 10/03/21 10/06/21 History subcutaneous solution (Lantus U-100 Insulin) oxycodone 10 mg tablet 10 mg PO Q4HP PRN 10/03/21 10/06/21 History hydrocodone 5 mg-acetaminophen 325 1 tab PO Q4-6H PRN #10 tab 10/04/21 10/06/21 Rx mg tablet ondansetron 4 mg disintegrating 4 mg PO TID-QID PRN #10 tab 10/04/21 10/06/21 Rx tablet atorvastatin 20 mg tablet 20 mg PO BEDTIME 10/06/21 10/06/21 History omeprazole 20 mg capsule,delayed 20 mg PO DAILY PRN 10/06/21 10/06/21 History release tamsulosin 0.4 mg capsule (Flomax) 0.4 mg PO QAM 10/06/21 10/06/21 History Allergies Allergy/AdvReac Type Severity Reaction Status Date / Time bee venom protein (honey bee) Allergy Severe Anaphylaxis Verified 10/06/21 10:46 Review of Systems Review of Systems ROS: Yes All systems reviewed with the patient and are negative except as otherwise documented Exam Vital Signs (past 8 hours): - 10/06/21 10:33 Temperature 98.0 F Pulse Rate 75 Respiratory Rate 16 Blood Pressure 126/72 Pulse Oximetry 99 Oxygen Delivery Method Room Air Const General: cooperative and comfortable Orientation: alert HENMT Head: normocephalic Ears: external ears normal Nose: external nose normal Face and sinus: normal facial exam Mouth: oral mucosae normal Eyes General: appearance normal, both eyes and all related structures Neck Neck: normal visual inspection Chest Chest: normal inspection of the chest Resp Effort & Inspection: normal respiratory effort Cardio Rate: regular rate GI Inspection: normal to inspection Skin General: no rashes or lesions noted and No jaundice Neuro General: patient alert and moves all extremities Cognition: normal cognition Speech: speech normal Extrem General: no pedal edema Psych Appearance: grossly normal Assessment & Plan Assessment & Plan narrative: 66-year-old male indicated for colon cancer screening. Colonoscopy is pursued today. Time Spent With Patient Critical Care time: I spent a total of [] minutes of critical care time on this patient's care today; this time is exclusive of procedural time.
--- NOTE | 2021-10-06 12:09 | PM.PREOP ---
Pre-operative Note COVID-19 COVID-19 status: Negative Result date/Date tested (Pos, Neg/Pending): 10/03/21 Criteria for continued procedure: Possibility delay results in more complex future surgery or treatment Interval Note History & Physical reviewed/Exam performed by Physician: Yes Changes to H&P: Yes ASA Class (for procedural sedation): II
--- NOTE | 2021-10-06 12:34 | PM.OP.COLON ---
Operative Date/Time/Diagnoses Date of procedure: 10/06/21 Time of procedure: 12:35 Pre-op diagnosis: Colon cancer screening Post-op diagnosis: same Procedure & Clinicians Study performed: Colonoscopy with cold forceps polypectomy Same procedure as scheduled: Yes Indications: Colon cancer screening Surgeon: Rafael Raymundo Procedure Notes SCOAP/Timeout: Done Procedure in detail: After the risks and benefits were explained, written and verbal informed consent was obtained. The patient was brought into the procedure room and placed into the left lateral decubitus position. Please see nurse script supervisor note for sedation details. Digital rectal examination was accomplished. The scope was introduced into the patient and advanced under direct visualization to the cecum as identified by the appendiceal orifice and ileocecal valve. The scope was slowly withdrawn to carefully examine the mucosa for any defects or lesions. Comprehensive imaging was accomplished throughout the rectum including the dentate line. The colon was decompressed, the scope was then removed from the patient who tolerated the procedure well. Bowel prep adequate Adult colonoscope Scope withdrawal time: 13 minutes Sedation minutes: 21 Complications: none Impression: No proctitis no colitis. Grade 2 internal hemorrhoids were noted. Mild sigmoid diverticulosis was noted. There was a diminutive 3 mm polyp in the sigmoid removed with cold forceps. No additional mucosal pathology was appreciated throughout. Endoscopic diagnosis 1. Colon polyp 2. Diverticulosis 3. Grade 2 hemorrhoids Post-procedure Plan for aftercare: 1. Await histopathology 2. Repeat colonoscopy 7 years. Disposition: PACU
[2021-10-06 12:37] VITALS: BP 93/60; PULSE 79; RESP 18; TEMP 36.9; O2SAT 99
[2021-10-06 12:40] VITALS: BP 99/62; PULSE 80; RESP 17; O2SAT 98
[2021-10-06 12:45] VITALS: BP 97/61; PULSE 77; RESP 16; O2SAT 98
[2021-10-06 12:52] VITALS: BP 104/60; PULSE 77; RESP 11; TEMP 36.6; O2SAT 99
[2021-10-06 13:00] VITALS: BP 106/68; PULSE 62; RESP 16; O2SAT 99
== END 2021-10-06 13:15 | disposition home or self-care (01) ==
PROVIDERS: PCP Physician Assistant Medical; Referring Provider Internal Medicine Gastroenterology; Visit Provider Internal Medicine Gastroenterology
PROC: 0DJD8ZZ Inspection of Lower Intestinal Tract, Via Natural or Artificial Opening Endoscopic (ICD-10-PCS; CPT 45378; 2021-10-06 11:00)
DX: Z12.11 Encounter for screening for malignant neoplasm of colon (principal); E11.9 Type 2 diabetes mellitus without complications; Z79.4 Long term (current) use of insulin; K57.30 Diverticulosis of large intestine without perforation or abscess without bleeding; K64.1 Second degree hemorrhoids; D12.5 Benign neoplasm of sigmoid colon
CPT/HCPCS: 45380; J2704